=== PATIENT | female | born 1965 | race Caucasian/White ===

== ENCOUNTER 2023-04-21 08:55 | Emergency (ER) | payer OTHER, SELFPAY ==
[2023-04-21] VITALS (11 sets, daily range): BP systolic 91–116; BP diastolic 34–78; PULSE 59–82; RESP 18; TEMP 35.5; O2SAT 92–100; BMI 25.5
--- NOTE | 2023-04-21 09:27 | ED.CHESTPAIN ---
HPI - Chest Pain General Time Seen by Provider: 09:27 Date Seen: 04/21/23 Chief Complaint: Chest Pain Stated Complaint: possible heart attack Time Seen by Provider: 04/21/23 09:27 Source: patient and RN notes reviewed Mode of arrival: ambulatory Limitations: no limitations History of Present Illness HPI narrative: Patient is a very pleasant 57-year-old female previously healthy who comes to the emergency room with chest pain. Patient was awoken this morning approximately 0500 hours by chest pain that she shows to be in the lower substernal area. It did not radiate to the back but was associated with some shortness of breath or difficulty taking a deep breath. Her gave her a baby aspirin this morning. Patient has been under considerable stress as her actually had 2 stents placed last week. Patient notes that she had a similar pain 2 and half days ago when she wanted to take her dog for a walk. She states that she was walking and had the pain and sat down to rest. She was able to complete the walk but at a very slow pace. She herself has never had heart problems in the past. She does retain a gallbladder but denies problems with that or history of GERD/reflux. She has not had any recent fever or chills or illness and denies a cough. She has no history of DVT has not noticed any lower extremity edema and has not been on any extended car rides or plane rides of late. Related Data Home Medications Medication Instructions Recorded Confirmed No Known Home Medications 04/21/23 04/21/23 Allergies Allergy/AdvReac Type Severity Reaction Status Date / Time No Known Drug Allergies Allergy Verified 04/21/23 13:39 Review of Systems Status of ROS Reports: 10 or more systems reviewed and unremarkable except as noted in History and below Const Reports: night sweats (Occasionally and attributed to menopause); Denies: fever, chills or fatigue Eyes Denies: change in vision ENMT Denies: neck pain, difficulty swallowing or hoarseness Cardio Reports: chest pain and shortness of breath with exertion; Denies: palpitations, edema or swelling of feet/ankles Resp Reports: shortness of breath; Denies: cough or wheezing GI Reports: diarrhea (Looser stools this morning); Denies: abdominal pain, nausea, vomiting or difficulty swallowing Denies: painful urination or painful menstruation Musculo Denies: back pain, neck pain, extremity pain or extremity swelling Integ/Breast Denies: rash Neuro Denies: headache or numbness in extremities Psych Reports: other Endo Denies: fatigue Allergy/Immuno Denies: wheezing PFSH PFSH Social History Smoking Status: Never smoker How often do you have a drink containing alcohol: monthly or less AUDIT-C Alcohol total score: 1 Non-prescribed substance use: denies use Exam Narrative Exam Narrative: Patient is alert and oriented. Tremulous miss of the jaw and limbs. Very anxious. Slightly pale color. EOM is full. Face symmetrical. Oral cavity with moist mucous membranes. Heart with regular rate and rhythm and I do not note any murmurs. Lungs are clear bilaterally. Abdomen soft nontender. No pulsating mass. Negative Dillard sign Lower extremities with no edema. No calf tenderness. Pedal pulses are symmetrical. Const Vital Signs, click to edit/add: Vital Signs - 24 hr 04/21/23 09:09 04/21/23 10:15 04/21/23 10:32 Temperature 96 F L Pulse Rate 62 64 Pulse Rate [Pulse Oximeter] 82 Respiratory Rate 18 Blood Pressure Blood Pressure [Left Upper Arm] 116/62 Pulse Oximetry 100 98 100 Oxygen Delivery Method Room Air 04/21/23 11:55 04/21/23 12:00 04/21/23 12:02 Temperature Pulse Rate 64 62 68 Pulse Rate [Pulse Oximeter] Respiratory Rate Blood Pressure 105/46 L Blood Pressure [Left Upper Arm] Pulse Oximetry 98 98 98 Oxygen Delivery Method 04/21/23 12:30 04/21/23 12:32 04/21/23 12:32 Temperature Pulse Rate 59 L 60 Pulse Rate [Pulse Oximeter] 60 Respiratory Rate 18 Blood Pressure 96/34 L Blood Pressure [Left Upper Arm] 96/34 L Pulse Oximetry 100 100 100 Oxygen Delivery Method Room Air 04/21/23 12:35 04/21/23 13:00 04/21/23 13:02 Temperature Pulse Rate 65 61 67 Pulse Rate [Pulse Oximeter] Respiratory Rate Blood Pressure 102/62 91/78 Blood Pressure [Left Upper Arm] Pulse Oximetry 92 98 100 Oxygen Delivery Method Documenting provider has reviewed patient's vital signs: yes Course Course Hospital Course: Differential diagnosis includes but is not limited to acute coronary event, esophageal spasm, PE, aortic dissection, biliary colic, GERD, pancreatitis. Will place IV. Patient has received 1 baby aspirin from her this morning. Will check CBC, comprehensive panel, CRP, troponin, chest x-ray and EKG. D-dimer as well. Reevaluation(s) Reevaluation #1: Patient informed that D dimer is slightly elevated. She still has some ongoing pain in there for do request CT. I do not think we are dealing with PE with a normal pulse and good oxygenation. Reevaluation #2: Chest CT negative for any acute abnormalities. I have ordered 2nd EKG and troponin at this time. I will ask Lucía if she would entertain the I thought of using Maalox and some Toradol to see if she has pain relief. I do note that her color seems much improved from her initial arrival. Vital Signs Vital signs: Initial Vital Signs Temperature 96 F L 04/21/23 09:09 Temperature Source Temporal Artery Scan 04/21/23 09:09 Pulse Rate 82 04/21/23 09:09 Respiratory Rate 18 04/21/23 09:09 Blood Pressure 116/62 04/21/23 09:09 Blood Pressure Mean 80 04/21/23 09:09 Blood Pressure Position Supine 04/21/23 09:09 Pulse Oximetry 100 04/21/23 09:09 Oxygen Delivery Method Room Air 04/21/23 09:09 Vital Signs Temperature 96 F L 04/21/23 09:09 Pulse Rate 82 04/21/23 09:09 Respiratory Rate 18 04/21/23 09:09 Blood Pressure 116/62 04/21/23 09:09 Pulse Oximetry 100 04/21/23 09:09 Oxygen Delivery Method Room Air 04/21/23 09:09 Temperature 96 F L 04/21/23 09:09 Pulse Rate 67 04/21/23 13:02 Respiratory Rate 18 04/21/23 12:32 Blood Pressure 91/78 04/21/23 13:02 Pulse Oximetry 100 04/21/23 13:02 Oxygen Delivery Method Room Air 04/21/23 12:32 MDM - Chest Pain MDM Narrative Medical decision making narrative: 1. Atypical chest pain-no evidence of acute coronary syndrome with reassuring EKGs and cardiac enzymes. Chest CT shows no aortic pathology. Possibilities today do include esophageal spasm, reflux/GERD or may be biliary colic. At this time patient is feeling better and will be discharged home. I would like her to take it easy and rest today. Thereafter she should follow up with her primary MD for any ongoing issues. Of course for worsening symptoms would have her return to the emergency room for re-evaluation. 2. Disposition-home with her . Return as needed. Medical Records Data Attestation: I reviewed the patient's medical records. Lab Data Attestation: I reviewed the patient's lab results. Labs: Lab Results 04/21/23 04/21/23 04/21/23 Range/Units 09:39 09:42 09:49 WBC 3.76 L (4.50-11.00) K/uL RBC 4.98 (4.00-5.20) m/uL Hgb 14.9 (12.0-16.0) gm/dL Hct 45.5 (33.0-51.0) % MCV 91 (80-100) fL MCH 30 (26-34) pg MCHC 33 (32-36) gm/dL RDW Coeff of Xavier 12.0 (11.5-15.5) % Plt Count 177 (140-440) K/uL Neut % (Auto) 62.0 (42.0-72.0) % Lymph % (Auto) 27.9 (20-44) % [place] % (Auto) 8.8 (0.0-11.0) % Eos % (Auto) 0.8 (0.0-7.0) % Baso % (Auto) 0.5 (0.0-3.0) % Neut # (Auto) 2.30 (1.7-7.0) K/uL Lymph # (Auto) 1.00 (0.90-2.90) K/uL [place]ern # (Auto) 0.30 (0.00-0.90) K/UL Eos # (Auto) 0.00 (0.00-0.50) K/uL Baso # (Auto) 0.00 (0.00-0.30) K/uL Abs Immat Gran (auto) 0.00 (0.00-0.30) K/uL Imm/Tot Granulo (auto) 0.0 % D-Dimer Quant (PE/DVT) 0.52 H (0.00-0.50) ug/ml Sodium 144 (135-149) mmol/L Potassium 3.9 (3.6-5.1) mmol/L Chloride 106 (96-114) mmol/L Carbon Dioxide 27 (20-32) mmol/L Anion Gap 11 (7-15) mEq/L BUN 11 (7-30) mg/dL Creatinine 0.7 (0.5-1.5) mg/dL Estimated Creat Clear 65.30 Estimated GFR 100 ml/min Glucose 95 (60-115) mg/dL Magnesium 2.5 (1.5-2.6) mg/dL Total Bilirubin 0.7 (0.1-1.5) mg/dL AST 35 (12-35) U/L ALT 24 (4-35) U/L Alkaline Phosphatase 70 (40-150) U/L C-Reactive Protein < 0.5 L (0.5-1.0) mg/dL Total Protein 9.2 H (6.0-8.3) g/dL Albumin 5.0 (3.3-5.0) g/dL Lipase 189 (23-300) U/L Urine Color (Yellow) Urine Appearance (Clear) Urine pH (5.0-8.5) Ur Specific [place] (1.000-1.030) Urine Protein (Negative) Urine Glucose (UA) (Negative) Urine Ketones (Negative) Urine Blood (Negative) Urine Nitrite (Negative) Urine Bilirubin (Negative) Urine Urobilinogen (0.2-1.0) Ur Leukocyte Esterase (Negative) Urine RBC (0-2) Urine WBC (0-5) Ur Squamous Epith Cells (None-Few) Urine Bacteria (None) SARS-CoV-2 (PCR) Negative SARS-CoV-2 (Negative) Lab Acknowledgement Test Added POC Troponin I 0.00 L (0.01-0.04) ng/ml 04/21/23 04/21/23 Range/Units 13:00 Unknown WBC (4.50-11.00) K/uL RBC (4.00-5.20) m/uL Hgb (12.0-16.0) gm/dL Hct (33.0-51.0) % MCV (80-100) fL MCH (26-34) pg MCHC (32-36) gm/dL RDW Coeff of Xavier (11.5-15.5) % Plt Count (140-440) K/uL Neut % (Auto) (42.0-72.0) % Lymph % (Auto) (20-44) % [place] % (Auto) (0.0-11.0) % Eos % (Auto) (0.0-7.0) % Baso % (Auto) (0.0-3.0) % Neut # (Auto) (1.7-7.0) K/uL Lymph # (Auto) (0.90-2.90) K/uL [place] # (Auto) (0.00-0.90) K/UL Eos # (Auto) (0.00-0.50) K/uL Baso # (Auto) (0.00-0.30) K/uL Abs Immat Gran (auto) (0.00-0.30) K/uL Imm/Tot Granulo (auto) % D-Dimer Quant (PE/DVT) (0.00-0.50) ug/ml Sodium (135-149) mmol/L Potassium (3.6-5.1) mmol/L Chloride (96-114) mmol/L Carbon Dioxide (20-32) mmol/L Anion Gap (7-15) mEq/L BUN (7-30) mg/dL Creatinine (0.5-1.5) mg/dL Estimated Creat Clear Estimated GFR ml/min Glucose (60-115) mg/dL Magnesium (1.5-2.6) mg/dL Total Bilirubin (0.1-1.5) mg/dL AST (12-35) U/L ALT (4-35) U/L Alkaline Phosphatase (40-150) U/L C-Reactive Protein (0.5-1.0) mg/dL Total Protein (6.0-8.3) g/dL Albumin (3.3-5.0) g/dL Lipase (23-300) U/L Urine Color Yellow (Yellow) Urine Appearance Clear (Clear) Urine pH 8.0 (5.0-8.5) Ur Specific [place] 1.015 (1.000-1.030) Urine Protein Negative (Negative) Urine Glucose (UA) Negative (Negative) Urine Ketones Negative (Negative) Urine Blood Negative (Negative) Urine Nitrite Negative (Negative) Urine Bilirubin Negative (Negative) Urine Urobilinogen 0.2 (0.2-1.0) Ur Leukocyte Esterase Negative (Negative) Urine RBC 0-2 (0-2) Urine WBC 0-2 (0-5) Ur Squamous Epith Cells Few (None-Few) Urine Bacteria Few A (None) SARS-CoV-2 (PCR) (Negative) Lab Acknowledgement POC Troponin I 0.00 L (0.01-0.04) ng/ml Imaging Data Chest x-ray: Attestation: I have reviewed the pertinent imaging results. Radiologist's impression: HEART AND MEDIASTINUM: The heart size is normal. The mediastinal contour appears normal for patient age. LUNGS AND PLEURAL SPACES: The lungs appear normal.The pleural spaces are unremarkable. OSSEOUS STRUCTURES: Age-appropriate appearance. No acute focal finding. IMPRESSION: No evidence of active pulmonary disease. CT scan - chest: Attestation: I have reviewed the pertinent imaging results. Radiologist's impression: eart and vasculature: Contrast opacification of the pulmonary arterial tree is adequate. No sign of pulmonary embolism. Heart size is normal. Thoracic aorta and pulmonary artery are normal in caliber. Lungs and pleura: No suspicious nodules or infiltrates. No pleural effusions, pleural thickening, or pneumothorax. Lymph nodes/mediastinum: No mediastinal, hilar, or axillary adenopathy. Chest wall: No masses. Upper abdomen: No acute or significant findings. Bones: Unremarkable for age. IMPRESSION: No acute findings. ECG Data Attestation: I personally reviewed and interpreted this ECG as follows: ECG interpretation date: 04/21/23 Interpretation: EKG by my read shows sinus rhythm at a rate of 70. I do not note any acute ST or T-wave changes. NE and QT intervals normal. EKG 2. By my read shows sinus rhythm at a rate of 61. No acute ST or T-wave changes are noted Discharge Plan Discharge Clinical Impression: Atypical chest pain Patient Disposition: Home, Self-Care Condition: Improved Additional Instructions: I suggest omeprazole 20 mg daily for 2 weeks. Rest today. Follow-up with your primary MD for ongoing problems. Prescriptions: No Action No Known Home Medications Stand Alone Forms: [employer] Instructions
--- NOTE | 2023-04-21 09:39 | CRLHL7_ITS ---
For Patients: As a result of the Cures Act, medical imaging exams and procedure reports are released immediately into your electronic medical record. You may view this report before your referring provider. If you have questions, please contact your health care provider. INDICATION: Chest pain COMPARISON: None TECHNIQUE: Single-view examination FINDINGS: TUBES AND LINES: None. HEART AND MEDIASTINUM: The heart size is normal. The mediastinal contour appears normal for patient age. LUNGS AND PLEURAL SPACES: The lungs appear normal.The pleural spaces are unremarkable. OSSEOUS STRUCTURES: Age-appropriate appearance. No acute focal finding. IMPRESSION: No evidence of active pulmonary disease. Dictated by Phillip Hernandez MD @ 04/21/2023 10:21:12 AM (Electronically Signed)
[2023-04-21 09:58] LABS: Basophils Percent Auto 0.5 % (0.0-3.0); Eosinophils Percent Auto 0.8 % (0.0-7.0); Hematocrit 45.5 % (33.0-51.0); Hemoglobin* 14.9 gm/dL (12.0-16.0); Lymphocytes Percent Auto 27.9 % (20-44); Mean Corpuscular HGB Conc 33 gm/dL (32-36); Mean Corpuscular Hemoglobin 30 pg (26-34); Mean Corpuscular Volume 91 fL (80-100); Monocytes Percent Auto 8.8 % (0.0-11.0); Platelet Count* 177 K/uL (140-440); Red Blood Count 4.98 m/uL (4.00-5.20); White Blood Count* 3.76 K/uL (4.50-11.00)
[2023-04-21 10:11] LABS: Slide Review Reflex No
[2023-04-21 10:13] LABS: Chloride* 106 mmol/L (96-114); Sodium* 144 mmol/L (135-149)
[2023-04-21 10:14] LABS: Potassium* 3.9 mmol/L (3.6-5.1)
[2023-04-21 10:15] LABS: D Dimer Quantitative* 0.52 ug/ml (0.00-0.50)
[2023-04-21 10:16] LABS: Alkaline Phosphatase* 70 U/L (40-150); Aspartate Amino Transferase* 35 U/L (12-35); Bilirubin Total* 0.7 mg/dL (0.1-1.5); Carbon Dioxide* 27 mmol/L (20-32); Creatinine* 0.7 mg/dL (0.5-1.5); Estimated Glomerular Filt Rate 100 ml/min; Total Protein* 9.2 g/dL (6.0-8.3)
[2023-04-21 10:17] LABS: Alanine Aminotransferase* 24 U/L (4-35); Blood Urea Nitrogen* 11 mg/dL (7-30); Glucose* 95 mg/dL (60-115); Lipase* 189 U/L (23-300); Magnesium* 2.5 mg/dL (1.5-2.6)
[2023-04-21 10:20] LABS: C Reactive Protein* < 0.5 mg/dL (0.5-1.0)
--- NOTE | 2023-04-21 10:36 | CRLHL7_ITS ---
For Patients: As a result of the Century Cures Act, medical imaging exams and procedure reports are released immediately into your electronic medical record. You may view this report before your referring provider. If you have questions, please contact your health care provider. INDICATION: Chest pain and shortness of breath. TECHNIQUE: CT chest with intravenous contrast was acquired with 75 cc Isovue 370 IV contrast. COMPARISON: None. FINDINGS: Heart and vasculature: Contrast opacification of the pulmonary arterial tree is adequate. No sign of pulmonary embolism. Heart size is normal. Thoracic aorta and pulmonary artery are normal in caliber. Lungs and pleura: No suspicious nodules or infiltrates. No pleural effusions, pleural thickening, or pneumothorax. Lymph nodes/mediastinum: No mediastinal, hilar, or axillary adenopathy. Chest wall: No masses. Upper abdomen: No acute or significant findings. Bones: Unremarkable for age. IMPRESSION: No acute findings. Please note that all CT scans at this facility use dose modulation, iterative reconstruction, and/or weight-based dosing when appropriate to reduce radiation dose to as low as reasonably achievable. Dictated by Raymodn Cesar MD @ 04/21/2023 12:37:01 PM (Electronically Signed)
[2023-04-21 10:44] LABS: Appearance Urine Clear (Clear); Bilirubin Urine Negative (Negative); Blood Urine Negative (Negative); Color Urine Yellow (Yellow); Glucose Urine Negative (Negative); Ketones Urine Negative (Negative); Leukocyte Esterase Urine Negative (Negative); Nitrite Urine Negative (Negative); Protein Urine Negative (Negative); Specific Gravity Urine 1.015 (1.000-1.030); Urobilinogen Urine 0.2 (0.2-1.0)
[2023-04-21 10:48] LABS: SARS PCR* Negative SARS-CoV-2 (Negative)
[2023-04-21 11:19] LABS: Bacteria Urine Few; RBC Urine 0-2 (0-2); Squamous Epithelial Cell Urine Few (None-Few); WBC Urine 0-2 (0-5)
[2023-04-21 11:22] LABS: Anion Gap 11 mEq/L (7-15)
[2023-04-21] MEDS: KETOROLAC 15 MG/ML inj IVP (13:04)
[2023-04-21] MEDS: MAG HYDROX/ALUMINUM HYD/SIMETH 30 ML ORAL.SUSP 15 ML PO (13:07)
[2023-04-24 19:42] LABS: Calcium* 9.6 mg/dL (8.4-10.6)
== END 2023-04-21 14:19 | disposition home or self-care (01) ==
PROVIDERS: Emergency Provider Family Medicine
DX: R07.9 Chest pain, unspecified (principal)
CPT/HCPCS: 36415; 71045; 71260; 80053; 81001; 83690; 83735; 84484; 85025; 85379; 86140; 87086; 87635; 93005; 96374; 99284; 99285; A9270; J1885; Q9967